=== PATIENT | female | born 1965 | race Two or more races ===

== ENCOUNTER 2016-11-09 08:08 | Outpatient (CLI) | payer BC ==
[2016-11-09 08:58] LABS: BASOPHILS % (AUTO) 0.3 % (0.0-2.0); EOSINOPHILS # (AUTO) 0.2 /CMM (0.0-0.7); EOSINOPHILS % (AUTO) 2.2 % (0.0-6.0); HEMATOCRIT 38 % (33-45); HEMOGLOBIN 13.3 g/dL (11.5-14.8); LYMPHOCYTES # (AUTO) 2.5 /CMM (0.8-4.8); LYMPHOCYTES % (AUTO) 29.1 % (20.0-44.0); MEAN CORPUSCULAR HEMOGLOBIN 31 PG (26.0-33.0); MEAN CORPUSCULAR HGB CONC 35 g/dl (31.0-36.0); MEAN CORPUSCULAR VOLUME 90 fL (82-100); MONOCYTES # (AUTO) 0.5 /CMM (0.1-1.30); NEUTROPHILS # (AUTO) 5.4 /CMM (1.8-8.9); NEUTROPHILS % (AUTO) 62.4 % (43.0-81.0); PLATELET COUNT (AUTO) 272 /CMM (150-450); RDW COEFFICIENT OF VARIATION 13.1 (11.5-15.0); RED BLOOD CELL COUNT(AUTO) 4.28 MIL/uL (4.0-5.2); WHITE BLOOD COUNT (AUTO) 8.6 K/uL (4.3-11.0)
[2016-11-09 09:33] LABS: ALBUMIN 3.7 g/dL (3.4-5.0); BILIRUBIN,TOTAL 0.3 mg/dL (0.2-1.0); CALCIUM, SERUM 9.1 mg/dL (8.5-10.1); CREATININE 0.9 mg/dL (0.6-1.3); POTASSIUM 3.8 mmol/L (3.5-5.1); TOTAL PROTEIN, SERUM 8.3 g/dL (6.4-8.2)
[2016-11-09 09:39] LABS: THYROID STIMULATING HORMONE 6.323 uIU/mL (0.358-3.74); URIC ACID 6.4 mg/dL (2.6-7.2)
== END 2016-11-09 23:59 | disposition home or self-care (01) ==
LOC: LAB 08:08
PROVIDERS: ATTEND Family Medicine
DX: M79.671 Pain in right foot (principal); R00.2 Palpitations
CPT/HCPCS: 36415; 80053-TC; 84439-TC; 84443-TC; 84480; 84550-TC; 85025-TC

== ENCOUNTER 2016-11-30 09:52 | Outpatient (CLI) | payer BC | END 2016-11-30 23:59 | disposition home or self-care (01) | LOC: CARD 09:52 | PROVIDERS: ATTEND Family Medicine | DX: I34.0 Nonrheumatic mitral (valve) insufficiency (principal); M79.671 Pain in right foot | CPT/HCPCS: 73630-TC; 93307-TC ==

== ENCOUNTER 2018-04-16 14:27 | Outpatient (CLI) | payer BC | END 2018-04-16 23:59 | disposition home or self-care (01) | LOC: LAB 14:27 | PROVIDERS: ATTEND Family Medicine | DX: N39.0 Urinary tract infection, site not specified (principal) | CPT/HCPCS: 87086-TC ==

== ENCOUNTER 2020-05-24 16:23 | Outpatient (CLI) | payer BC ==
[2020-05-24 17:20] LABS: BASOPHILS % (AUTO) 0.6 % (0.0-2.0); EOSINOPHILS % (AUTO) 2.3 % (0.0-6.0); HEMATOCRIT 38 % (33-45); HEMOGLOBIN 12.8 g/dL (11.5-14.8); LYMPHOCYTES # (AUTO) 2.2 /CMM (0.8-4.8); LYMPHOCYTES % (AUTO) 28.7 % (20.0-44.0); MEAN CORPUSCULAR HGB CONC 34 g/dl (31.0-36.0); MEAN CORPUSCULAR VOLUME 90 fL (82-100); MONOCYTES # (AUTO) 0.5 /CMM (0.1-1.30); MONOCYTES % (AUTO) 6.1 % (2.0-12.0); NEUTROPHILS # (AUTO) 4.9 /CMM (1.8-8.9); NEUTROPHILS % (AUTO) 62.3 % (43.0-81.0); PLATELET COUNT (AUTO) 285 /CMM (150-450); WHITE BLOOD COUNT (AUTO) 7.8 K/uL (4.3-11.0)
[2020-05-24 18:05] LABS: BILIRUBIN,URINE NEGATIVE (NEGATIVE); COLOR,URINE YELLOW (YELLOW); LEUKOCYTE ESTERASE ,URINE NEGATIVE (NEGATIVE); NITRITE, URINE NEGATIVE (NEGATIVE); PH,URINE 6.5 (5.0-8.0); PROTEIN,URINE NEGATIVE (NEGATIVE); UGLUCOSE NEGATIVE (NEGATIVE); UROBILINOGEN,URINE 0.2 EU/dL (0.2)
[2020-05-24 18:17] LABS: ALBUMIN 3.7 g/dL (3.4-5.0); BILIRUBIN,TOTAL 0.2 mg/dL (0.2-1.0); POTASSIUM 3.8 mmol/L (3.5-5.1); TOTAL PROTEIN, SERUM 8.3 g/dL (6.4-8.2)
[2020-05-24 18:55] LABS: BACTERIA,URINE Few /HPF (None Seen); SQUAMOUS EPITHELIAL CELL,UR Many /HPF (None Seen)
[2020-05-24 18:56] LABS: RBC,URINE 0-2 /HPF (0-2); WBC,URINE 0-2 /HPF (0-3)
[2020-05-26 17:07] LABS: H. PYLORI AB IgA 18.2 units (0.0-8.9)
== END 2020-05-24 23:59 | disposition home or self-care (01) ==
LOC: LAB 16:23
PROVIDERS: ATTEND Family Medicine
DX: K21.9 Gastro-esophageal reflux disease without esophagitis (principal); R10.9 Unspecified abdominal pain
CPT/HCPCS: 36415; 80053-TC; 81001; 82150-TC; 83690-TC; 85025-TC; 86677; 87086-TC

== ENCOUNTER 2020-06-14 08:48 | Outpatient (CLI) | payer BC | END 2020-06-14 23:59 | disposition home or self-care (01) | LOC: US 08:48 | PROVIDERS: ATTEND Family Medicine | DX: R10.9 Unspecified abdominal pain (principal) | CPT/HCPCS: 76700-TC ==

== ENCOUNTER 2020-06-23 11:18 | Outpatient (CLI) | payer BC ==
[2020-06-23 12:02] LABS: BASOPHILS % (AUTO) 0.4 % (0.0-2.0); EOSINOPHILS % (AUTO) 1.9 % (0.0-6.0); HEMATOCRIT 39 % (33-45); HEMOGLOBIN 13.1 g/dL (11.5-14.8); LYMPHOCYTES # (AUTO) 1.9 /CMM (0.8-4.8); LYMPHOCYTES % (AUTO) 26.7 % (20.0-44.0); MEAN CORPUSCULAR HGB CONC 34 g/dl (31.0-36.0); MEAN CORPUSCULAR VOLUME 92 fL (82-100); MONOCYTES # (AUTO) 0.4 /CMM (0.1-1.30); MONOCYTES % (AUTO) 5.5 % (2.0-12.0); NEUTROPHILS # (AUTO) 4.7 /CMM (1.8-8.9); NEUTROPHILS % (AUTO) 65.5 % (43.0-81.0); PLATELET COUNT (AUTO) 261 /CMM (150-450); RED BLOOD CELL COUNT(AUTO) 4.24 MIL/uL (4.0-5.2); WHITE BLOOD COUNT (AUTO) 7.2 K/uL (4.3-11.0)
[2020-06-23 12:04] LABS: BILIRUBIN,URINE NEGATIVE (NEGATIVE); COLOR,URINE YELLOW (YELLOW); LEUKOCYTE ESTERASE ,URINE NEGATIVE (NEGATIVE); NITRITE, URINE NEGATIVE (NEGATIVE); PROTEIN,URINE NEGATIVE (NEGATIVE); UGLUCOSE NEGATIVE (NEGATIVE); UROBILINOGEN,URINE 0.2 EU/dL (0.2)
[2020-06-23 13:07] LABS: BACTERIA,URINE None seen /HPF (None Seen); RBC,URINE 0-2 /HPF (0-2); WBC,URINE NONE SEEN /HPF (0-3)
[2020-06-23 13:08] LABS: SQUAMOUS EPITHELIAL CELL,UR Few /HPF (None Seen)
[2020-06-23 13:28] LABS: ALBUMIN 3.6 g/dL (3.4-5.0); BILIRUBIN,TOTAL 0.3 mg/dL (0.2-1.0); CALCIUM, SERUM 9.1 mg/dL (8.5-10.1); POTASSIUM 3.9 mmol/L (3.5-5.1); TOTAL PROTEIN, SERUM 8.2 g/dL (6.4-8.2)
== END 2020-06-23 23:59 | disposition home or self-care (01) ==
LOC: LAB 11:18
PROVIDERS: ATTEND Family Medicine
DX: K21.9 Gastro-esophageal reflux disease without esophagitis (principal); R10.9 Unspecified abdominal pain
CPT/HCPCS: 36415; 80053-TC; 81001; 82150-TC; 83690-TC; 85025-TC; 86677; 87086-TC

== ENCOUNTER 2020-08-09 15:26 | Outpatient (CLI) | payer BC ==
[2020-08-09 16:23] LABS: CREATININE 0.8 mg/dL (0.6-1.3)
== END 2020-08-09 23:59 | disposition home or self-care (01) ==
LOC: LAB 15:26
PROVIDERS: ATTEND Family Medicine
DX: R10.9 Unspecified abdominal pain (principal)
CPT/HCPCS: 36415; 82565-TC; 84520-TC

== ENCOUNTER 2020-08-11 08:40 | Outpatient (CLI) | payer BC ==
[2020-08-11] MEDS ORDERED: IOHEXOL-300 100 ML VIAL IV ONE (09:34)
[2020-08-11] MEDS ORDERED: IV NS 0.9% 250 ML IV ONE (09:34)
[2020-08-11] MEDS ORDERED: CT SWABBABLE VALVE TRANS SET 1 EA INFUS.SET MC ONE (09:34)
== END 2020-08-11 23:59 | disposition home or self-care (01) ==
LOC: CT 08:40
PROVIDERS: ATTEND Family Medicine
DX: K57.30 Diverticulosis of large intestine without perforation or abscess without bleeding (principal)
CPT/HCPCS: 74178; J7050; Q9967

== ENCOUNTER 2021-01-06 12:11 | Outpatient (CLI) | payer BC ==
[2021-01-06 13:25] LABS: BASOPHILS % (AUTO) 0.7 % (0.0-2.0); EOSINOPHILS % (AUTO) 2.3 % (0.0-6.0); HEMATOCRIT 41 % (33-45); HEMOGLOBIN 13.6 g/dL (11.5-14.8); LYMPHOCYTES # (AUTO) 1.7 K/uL (0.8-4.8); LYMPHOCYTES % (AUTO) 29.1 % (20.0-44.0); MEAN CORPUSCULAR HGB CONC 34 g/dl (31.0-36.0); MEAN CORPUSCULAR VOLUME 91 fL (82-100); MONOCYTES # (AUTO) 0.3 K/uL (0.1-1.30); MONOCYTES % (AUTO) 5.9 % (2.0-12.0); NEUTROPHILS # (AUTO) 3.6 K/uL (1.8-8.9); PLATELET COUNT (AUTO) 297 K/uL (150-450); RED BLOOD CELL COUNT(AUTO) 4.46 MIL/uL (4.0-5.2); WHITE BLOOD COUNT (AUTO) 5.8 K/uL (4.3-11.0)
[2021-01-06 13:35] LABS: BILIRUBIN,URINE NEGATIVE (NEGATIVE); COLOR,URINE YELLOW (YELLOW); LEUKOCYTE ESTERASE ,URINE LARGE (NEGATIVE); NITRITE, URINE NEGATIVE (NEGATIVE); PH,URINE 7.5 (5.0-8.0); PROTEIN,URINE NEGATIVE (NEGATIVE); UGLUCOSE NEGATIVE (NEGATIVE); UROBILINOGEN,URINE 0.2 EU/dL (0.2)
[2021-01-06 13:56] LABS: BACTERIA,URINE Moderate /HPF (None Seen); RBC,URINE 0-2 /HPF (0-2); SQUAMOUS EPITHELIAL CELL,UR Many /HPF (None Seen)
[2021-01-06 14:13] LABS: CHOLESTEROL 239 mg/dL (<200); HDL CHOLESTEROL 49 mg/dL (40-60); LDL 156 mg/dL (0-99); THYROID STIMULATING HORMONE 1.713 uIU/mL (0.358-3.74); TRIGLYCERIDES 169 mg/dL (30-150); URIC ACID 6.2 mg/dL (2.6-7.2)
[2021-01-06 14:15] LABS: C-REACTIVE PROTEIN < 0.2 mg/dL (0.0-0.9)
[2021-01-06 14:31] LABS: IRON, SERUM 120 ug/dl (50-175); TOTAL IRON BINDING CAPACITY 310 ug/dl (250-450)
[2021-01-06 14:58] LABS: ALANINE AMINOTRANSFERASE 28 U/L (12-78); ALKALINE PHOSPHATASE 107 U/L (46-116); ASPARTATE AMINOTRANSFERASE 27 U/L (15-37); BILIRUBIN,TOTAL 0.5 mg/dL (0.2-1.0); CALCIUM, SERUM 9.1 mg/dL (8.5-10.1); CARBON DIOXIDE 26 mmol/L (21-32); CHLORIDE 104 mmol/L (98-107); CREATININE 0.9 mg/dL (0.6-1.3); GLUCOSE 98 mg/dL (74-106); SODIUM SERUM 141 mmol/L (136-145); TOTAL PROTEIN, SERUM 8.8 g/dL (6.4-8.2); UREA NITROGEN, BLOOD 13 mg/dL (7-18)
== END 2021-01-06 23:59 | disposition home or self-care (01) ==
LOC: LAB 12:11
PROVIDERS: ATTEND Legal Medicine
DX: E11.9 Type 2 diabetes mellitus without complications (principal); E78.5 Hyperlipidemia, unspecified; D64.9 Anemia, unspecified; E55.9 Vitamin D deficiency, unspecified; R10.9 Unspecified abdominal pain; R53.1 Weakness; Z00.00 Encounter for general adult medical examination without abnormal findings
CPT/HCPCS: 36415; 80053-TC; 80061-TC; 81001; 82306; 82607-TC; 83540-TC; 84439-TC; 84443-TC; 84550-TC; 85025-TC; 85652-TC; 86140-TC; 86431-TC; 87086-TC

== ENCOUNTER 2021-03-10 09:00 | Outpatient (CLI) | payer BC | END 2021-03-10 23:59 | disposition home or self-care (01) | LOC: WOU 09:00 | PROVIDERS: ATTEND Podiatrist Foot & Ankle Surgery | DX: M72.2 Plantar fascial fibromatosis (principal); M77.31 Calcaneal spur, right foot; M79.671 Pain in right foot | CPT/HCPCS: G0463 ==

== ENCOUNTER 2021-03-27 10:27 | Outpatient (CLI) | payer BC | END 2021-03-27 23:59 | disposition home or self-care (01) | LOC: RAD 10:27 | PROVIDERS: ATTEND Podiatrist Foot & Ankle Surgery | DX: M19.071 Primary osteoarthritis, right ankle and foot (principal); M20.11 Hallux valgus (acquired), right foot; M77.31 Calcaneal spur, right foot; M76.61 Achilles tendinitis, right leg | CPT/HCPCS: 73630-TC ==

== ENCOUNTER 2021-09-19 07:22 | Outpatient (CLI) | payer BC ==
[2021-09-19 09:03] LABS: BASOPHILS % (AUTO) 0.6 % (0.0-2.0); EOSINOPHILS % (AUTO) 2.4 % (0.0-6.0); HEMATOCRIT 40 % (33-45); HEMOGLOBIN 13.2 g/dL (11.5-14.8); LYMPHOCYTES # (AUTO) 1.7 K/uL (0.8-4.8); LYMPHOCYTES % (AUTO) 26.5 % (20.0-44.0); MEAN CORPUSCULAR HGB CONC 34 g/dl (31.0-36.0); MEAN CORPUSCULAR VOLUME 90 fL (82-100); MONOCYTES # (AUTO) 0.4 K/uL (0.1-1.30); MONOCYTES % (AUTO) 6.7 % (2.0-12.0); NEUTROPHILS % (AUTO) 63.8 % (43.0-81.0); PLATELET COUNT (AUTO) 276 K/uL (150-450); RED BLOOD CELL COUNT(AUTO) 4.39 MIL/uL (4.0-5.2); WHITE BLOOD COUNT (AUTO) 6.3 K/uL (4.3-11.0)
[2021-09-19 09:04] LABS: BILIRUBIN,URINE NEGATIVE (NEGATIVE); COLOR,URINE YELLOW (YELLOW); LEUKOCYTE ESTERASE ,URINE LARGE (NEGATIVE); NITRITE, URINE NEGATIVE (NEGATIVE); PH,URINE 6.5 (5.0-8.0); PROTEIN,URINE NEGATIVE (NEGATIVE); UGLUCOSE NEGATIVE (NEGATIVE); UROBILINOGEN,URINE 0.2 EU/dL (0.2)
[2021-09-19 09:14] LABS: BACTERIA,URINE Few /HPF (None Seen); SQUAMOUS EPITHELIAL CELL,UR Many /HPF (None Seen); WBC,URINE 15-30 /HPF (0-3)
[2021-09-19 10:39] LABS: FREE T4 (FREE THYROXINE) 1.16 ng/dL (0.76-1.46); THYROID STIMULATING HORMONE 3.542 uIU/mL (0.358-3.74); URIC ACID 6.1 mg/dL (2.6-7.2)
[2021-09-19 10:47] LABS: ALBUMIN 3.8 g/dL (3.4-5.0); BILIRUBIN,TOTAL 0.4 mg/dL (0.2-1.0); CALCIUM, SERUM 9.3 mg/dL (8.5-10.1); CREATININE 0.8 mg/dL (0.6-1.3); POTASSIUM 4.1 mmol/L (3.5-5.1); TOTAL PROTEIN, SERUM 8.4 g/dL (6.4-8.2)
[2021-09-22 07:07] LABS: *AREA 13 IGE,TOTAL 14 IU/mL (6-495)
== END 2021-09-19 23:59 | disposition home or self-care (01) ==
LOC: CT 07:22
PROVIDERS: ATTEND Legal Medicine
DX: Z00.00 Encounter for general adult medical examination without abnormal findings (principal); R05.9 Cough, unspecified; R06.02 Shortness of breath; E11.9 Type 2 diabetes mellitus without complications; J30.9 Allergic rhinitis, unspecified; E78.00 Pure hypercholesterolemia, unspecified; E03.9 Hypothyroidism, unspecified; D64.9 Anemia, unspecified
CPT/HCPCS: 36415; 71250-TC; 80053-TC; 80061-TC; 81001; 82306; 82607-TC; 82728-TC; 82785; 83540-TC; 84439-TC; 84443-TC; 84550-TC; 85025-TC; 87086-TC

== ENCOUNTER 2021-12-25 08:48 | Outpatient (CLI) | payer BC | END 2021-12-25 23:59 | disposition home or self-care (01) | LOC: RAD 08:48 | PROVIDERS: ATTEND Legal Medicine | DX: M72.2 Plantar fascial fibromatosis (principal); M79.672 Pain in left foot | CPT/HCPCS: 73630-TC ==

== ENCOUNTER 2022-01-02 09:00 | Outpatient (CLI) | payer BC | END 2022-01-02 23:59 | disposition home or self-care (01) | LOC: WOU 09:00 | PROVIDERS: ATTEND Podiatrist Foot & Ankle Surgery | DX: M72.2 Plantar fascial fibromatosis (principal); M79.671 Pain in right foot; M77.32 Calcaneal spur, left foot | CPT/HCPCS: G0463 ==

== ENCOUNTER 2022-01-26 09:18 | Outpatient (CLI) | payer BC | END 2022-01-26 23:59 | disposition home or self-care (01) | LOC: WOU 09:18 | PROVIDERS: ATTEND Podiatrist Foot & Ankle Surgery | DX: M77.32 Calcaneal spur, left foot (principal); M72.2 Plantar fascial fibromatosis; R60.0 Localized edema; M79.672 Pain in left foot; M79.605 Pain in left leg | CPT/HCPCS: G0463 ==

== ENCOUNTER 2022-04-10 13:05 | Outpatient (CLI) | payer BC | END 2022-04-10 23:59 | disposition home or self-care (01) | LOC: MRI 13:05 | PROVIDERS: ATTEND Legal Medicine | DX: M21.42 Flat foot [pes planus] (acquired), left foot (principal); M72.2 Plantar fascial fibromatosis; M71.572 Other bursitis, not elsewhere classified, left ankle and foot; M65.872 Other synovitis and tenosynovitis, left ankle and foot | CPT/HCPCS: 73718-TC; 73721-TC ==